=== PATIENT | male | born 1955 | race Caucasian/White ===

== ENCOUNTER 2020-04-02 13:35 | Outpatient (CLI) | payer OTHER, SELFPAY ==
[2020-04-02 13:46] LABS: Basophils Absolute Auto 0.06 K/mm3 (0.00-0.10); Basophils Percent Auto 0.8 % (0.0-1.0); Eosinophils Absolute Auto 0.46 K/mm3 (0.02-0.50); Eosinophils Percent Auto 5.8 % (1.0-6.0); Hematocrit 36.2 % (40.0-54.0); Hemoglobin 12.8 g/dL (14.0-18.0); Immature Granulocyte Absolute 0.03 K/mm3 (0.00-0.00); Immature Granulocyte Percent A 0.4 % (0.0-0.0); Immature Reticulocyte Fraction 11.6 % (2.0-16.52); Lymphocytes Absolute Auto 2.39 K/mm3 (1.10-4.50); Lymphocytes Percent Auto 30.2 % (18.0-42.0); Mean Corpuscular HGB Conc 35.4 g/dL (32.0-36.0); Mean Corpuscular Hemoglobin 33.6 pg (27.0-31.0); Mean Platelet Volume 8.7 fl (8.7-11.0); Monocytes Percent Auto 10.1 % (2.0-11.0); Neutrophils Absolute Auto 4.2 K/mm3 (1.7-7.2); Neutrophils Percent Auto 52.7 % (50.0-70.0); Nucleated Red Blood Cells Absolute Auto 0.02 K/mm3 (0.00-0.00); Nucleated Red Blood Cells Perc 0.3 % (0-0.0); Platelet Count Result 249 K/mm3 (150-420); Red Blood Count 3.81 M/mm3 (4.70-6.10); Red Cell Distribution Width 13.4 % (11.6-14.4); Reticulocyte Hemoglobin Conten 34.8 pg (28.0-35.0); Reticulocyte Percent 1.53 % (0.50-1.50); Reticulocytes Absolute 0.06 M/mm3 (0.02-0.1); White Blood Count 7.9 K/mm3 (4.8-10.8)
[2020-04-02 15:24] LABS: Alanine Aminotransferase 28 U/L (16-63); Albumin Level 3.5 g/dL (3.4-5.0); Alkaline Phosphatase 101 U/L (46-116); Anion Gap 14.6 mmol/L (7-16); Aspartate Amino Transferase 22 U/L (15-37); Bilirubin,Total 0.4 mg/dL (0.00-1.00); Blood Urea Nitrogen 22 mg/dL (7-18); Calcium 9.2 mg/dL (8.5-10.1); Carbon Dioxide 27 mmol/L (21-32); Chloride 101 mmol/L (98-108); Estimated Glomerular Filt Rate 46; Glucose 90 mg/dL (70-99); Iron 86 ug/dL (65-175); Osmolality Calculated 291 mOsm/kg (285-295); Percent Iron Saturation 23 % (12-57); Potassium 3.6 mmol/L (3.5-5.1); Sodium 139 mmol/L (136-145); Thyroid Stimulating Hormone 2.37 uIU/mL (0.36-3.74); Total Protein 7.1 g/dL (6.4-8.2); Vitamin B12 435 pg/mL (193-986)
[2020-04-04 17:32] LABS: Red Blood Cell Folate 618 ng/mL RBC (>280)
== END 2020-04-02 13:36 | disposition home or self-care (01) ==
LOC: CHSLAB 13:38
PROVIDERS: PCP Nurse Practitioner Family; Visit Provider Nurse Practitioner Family
DX: D64.9 Anemia, unspecified (principal); Z00.00 Encounter for general adult medical examination without abnormal findings; E53.8 Deficiency of other specified B group vitamins
CPT/HCPCS: 36415; 80053; 82607; 82747; 83540; 83550; 84443; 85025; 85046

== ENCOUNTER 2020-04-18 07:21 | Outpatient (CLI) | payer OTHER, SELFPAY ==
[2020-04-18 09:22] LABS: Alanine Aminotransferase 27 U/L (16-63); Albumin Level 3.6 g/dL (3.4-5.0); Alkaline Phosphatase 99 U/L (46-116); Anion Gap 13.7 mmol/L (7-16); Aspartate Amino Transferase 22 U/L (15-37); Bilirubin,Total 0.6 mg/dL (0.00-1.00); Blood Urea Nitrogen 19 mg/dL (7-18); Calcium 8.6 mg/dL (8.5-10.1); Carbon Dioxide 28 mmol/L (21-32); Chloride 101 mmol/L (98-108); Estimated Glomerular Filt Rate 60; Glucose 99 mg/dL (70-99); Osmolality Calculated 290 mOsm/kg (285-295); Potassium 3.7 mmol/L (3.5-5.1); Sodium 139 mmol/L (136-145); Total Protein 7.1 g/dL (6.4-8.2)
== END 2020-04-18 07:22 | disposition home or self-care (01) ==
PROVIDERS: PCP Nurse Practitioner Family; Visit Provider Nurse Practitioner Family
DX: N28.9 Disorder of kidney and ureter, unspecified (principal)
CPT/HCPCS: 36415; 80053

== ENCOUNTER 2020-07-05 07:43 | Outpatient (CLI) | payer OTHER, SELFPAY ==
--- NOTE | ~2020-07-05 | CT_ITS ---
EXAMINATION: CT abdomen pelvis w con INDICATION: Lower abdominal pain TECHNIQUE: Computed tomographic images of the abdomen and pelvis were obtained after the administrati on of 100 cc of Omnipaque 350 intravenous contrast. The dose-length product (DLP) was 767.60 mGy-cm. Automated exposure control and iterative reconstruction technique were employed. COMPARISON: 11/02/2018 FINDINGS: There is mild emphysema of the visualized lung bases. Also noted are multiple calcified pul monary nodules, consistent with old granulomatous disease. The heart size is normal. Punctate calcifi cations in otherwise normal appearing liver and spleen likely represent healed granulomatous disease. The gallbladder, pancreas, and adrenal glands are normal. The kidneys are unremarkable. No pathologi chuck enlarged abdominal or pelvic lymph nodes are identified. Colonic diverticulosis is present with out evidence of diverticulitis. The appendix is normal. There are bilateral inguinal hernias containi ng fat. Bilateral common iliac artery stents are noted. There is moderate lumbar spondylosis. There i s mild circumferential bladder wall thickening. IMPRESSION: 1. Mild circumferential wall thickening of the urinary bladder which could reflect chronic, obstructi on, incomplete distention, or cystitis. Consider correlation with urinalysis. 2. Diverticulosis without evidence of diverticulitis. Reviewed, dictated and finalized at location B. IMPRESSION: 1. Mild circumferential wall thickening of the urinary bladder which could refl ect chronic, obstruction, incomplete distention, or cystitis. Consider correlat ion with urinalysis. 2. Diverticulosis without evidence of diverticulitis.
[2020-07-05 08:02] LABS: Estimated Glomerular Filt Rate 59
== END 2020-07-05 07:44 | disposition home or self-care (01) ==
PROVIDERS: PCP Nurse Practitioner Family; Visit Provider Internal Medicine Gastroenterology
DX: R10.30 Lower abdominal pain, unspecified (principal)
CPT/HCPCS: 74177; Q9965

== ENCOUNTER 2020-07-10 12:12 | Outpatient (CLI) | payer OTHER, SELFPAY ==
[2020-07-10 12:25] LABS: Add Urine Microscopic? NO; Appearance Urine Clear (Clear); Bilirubin Urine Negative (Negative); Blood Urine Negative (Negative); Color Urine Yellow (Yellow); Glucose Urine UA Negative (Negative); Ketones Urine Negative (Negative); Leukocyte Esterase Ur Negative LEU/UL (Negative); Nitrate Urine Negative (Negative); Protein Urine Negative (Negative); Specific Grav Ur 1.025 (1.010-1.020); Urobilinogen Urine 0.2 mg/dL (0.2-1.0)
== END 2020-07-10 12:13 | disposition home or self-care (01) ==
LOC: CHSLAB 12:13
PROVIDERS: PCP Nurse Practitioner Family; Visit Provider Internal Medicine Gastroenterology
DX: R93.3 Abnormal findings on diagnostic imaging of other parts of digestive tract (principal)
CPT/HCPCS: 81003